=== PATIENT | female | born 1975 | race Caucasian/White ===

== ENCOUNTER 2018-02-10 21:02 | Emergency (ER) | payer MEDICAID ==
[~2018-02-10] VITALS: Ht 160 cm; Wt 60.4 kg
[2018-02-10] MEDS ORDERED: PLEASE ENTER ALLERGIES MC SCH (21:30)
[2018-02-10] MEDS ORDERED: ONDANSETRON ODT 4 MG PO ONE (21:30)
[2018-02-10 21:41] LABS: BASOPHILS # (AUTO) 0.04 x10^3/uL (0-0.1); BASOPHILS % (AUTO) 1 % (0-1); EOSINOPHILS # (AUTO) 0.03 x10^3/uL (0-0.4); EOSINOPHILS % (AUTO) 0 % (1-7); LYMPHOCYTES # (AUTO) 2.95 x10^3/uL (1-3.4); LYMPHOCYTES % (AUTO) 41 % (22-44); MD NO; MEAN CORPUSCULAR HEMOGLOBIN 31.1 pg (27.0-34.8); MEAN CORPUSCULAR HGB CONC 34.6 g/dL (32.4-35.8); MEAN CORPUSCULAR VOLUME 89.9 fL (80-100); MONOCYTES # (AUTO) 0.64 x10^3/uL (0.2-0.8); MONOCYTES % (AUTO) 9 % (2-9); NEUTROPHILS # (AUTO) 3.48 x10^3/uL (1.8-6.8); NEUTROPHILS % (AUTO) 49 % (42-75); PLATELET COUNT 373 x10^3/uL (130-400); RED BLOOD COUNT 4.49 x10^6/uL (3.82-5.3); RED CELL DISTRIBUTION WIDTH 12.8 % (9.6-15.2)
[2018-02-10] MEDS ORDERED: ONDANSETRON ODT 4 MG ONE (21:41)
[2018-02-10 21:47] LABS: CULTURE INDICATED? YES; MICROSCOPIC INDICATED
[2018-02-10 21:51] LABS: ALANINE AMINOTRANSFERASE 28 U/L (12-78); ANION GAP 12 mmol/L (5-15); CALCIUM 8.7 mg/dL (8.5-10.1); CHLORIDE 110 mmol/L (98-107); CREATININE 1.01 mg/dL (0.55-1.02)
[2018-02-10 21:54] LABS: ALKALINE PHOSPHATASE 68 U/L (45-117); BILIRUBIN,TOTAL 0.6 mg/dL (0.2-1.0); TOTAL PROTEIN 7.4 g/dL (6.4-8.2)
[2018-02-10 21:55] LABS: AMPHETAMINE SCREEN, URINE Positive (Negative); BARBITURATE SCREEN, URINE Negative (Negative); BENZODIAZEPINE SCREEN, URINE Negative (Negative); CANNABINOID SCREEN, URINE Negative (Negative); COCAINE SCREEN, URINE Negative (Negative); METHADONE SCREEN, URINE Negative (Negative); OPIATE SCREEN, URINE Negative (Negative)
[2018-02-10] MEDS ORDERED: POTASSIUM CHLORIDE 20 MEQ TAB.ER.PRT ONE (22:00)
[2018-02-10] MEDS ORDERED: POTASSIUM CHLORIDE 20 MEQ TAB.ER.PRT PO ONE (22:00)
[2018-02-10 22:14] VITALS: BP 102/70
== END 2018-02-10 22:39 | disposition home or self-care (01) ==
LOC: ED 22:30
DX: K29.00 Acute gastritis without bleeding (principal); L20.84 Intrinsic (allergic) eczema; E87.6 Hypokalemia; F15.10 Other stimulant abuse, uncomplicated; L30.9 Dermatitis, unspecified; F17.200 Nicotine dependence, unspecified, uncomplicated; F41.9 Anxiety disorder, unspecified; F32.9 Major depressive disorder, single episode, unspecified; Z72.9 Problem related to lifestyle, unspecified; Z79.899 Other long term (current) drug therapy
CPT/HCPCS: 36415; 80053; 80307; 81001; 85025; 87086; 99284; Q0162

== ENCOUNTER 2019-02-08 22:48 | Emergency (ER) | payer MEDICAID ==
[~2019-02-08] VITALS: Ht 160 cm; Wt 55.2 kg
[2019-02-08 22:53] VITALS: BP 110/71
[2019-02-08] MEDS ORDERED: CEPHALEXIN 500 MG CAPSULE PO ONE (23:00)
[2019-02-08] MEDS ORDERED: SULFAMETH./TRIMETHOPRIM DS 800MG/160MG TABLET PO ONE (23:00)
[2019-02-08] MEDS ORDERED: SULFAMETH./TRIMETHOPRIM DS 800MG/160MG TABLET ONE (23:10)
[2019-02-08] MEDS ORDERED: CEPHALEXIN 500 MG CAPSULE ONE (23:10)
[2019-02-08] MEDS ORDERED: ONDANSETRON ODT 4 MG ONE (23:13)
--- NOTE | 2019-02-08 23:15 | NUR ---
PT MEDICATED PER MAR FROM TRIAGE. PT D/C HOME FROM LOBBY. TRIAGE VSS. NO S/S OF ACUTE DISTRESS.
[2019-02-08] MEDS ORDERED: ONDANSETRON ODT 4 MG PO ONE (23:30)
== END 2019-02-08 23:18 | disposition home or self-care (01) ==
LOC: ED 23:02
DX: L03.221 Cellulitis of neck (principal); F32.9 Major depressive disorder, single episode, unspecified; F41.1 Generalized anxiety disorder; F17.210 Nicotine dependence, cigarettes, uncomplicated; Z86.19 Personal history of other infectious and parasitic diseases
CPT/HCPCS: 99284; Q0162

== ENCOUNTER 2019-02-12 17:20 | Emergency (ER) | payer MEDICAID ==
[~2019-02-12] VITALS: Ht 160 cm; Wt 55.1 kg
[2019-02-12 17:23] VITALS: BP 110/73
--- NOTE | 2019-02-12 17:57 | NUR ---
Patient given discharge instructions and Rx, they have confirmed that they understand the instructions. Patient ambulatory with steady gait.
== END 2019-02-12 17:58 | disposition home or self-care (01) ==
LOC: ED 17:30
DX: S09.90XA Unspecified injury of head, initial encounter (principal); F32.9 Major depressive disorder, single episode, unspecified; F17.200 Nicotine dependence, unspecified, uncomplicated; W22.8XXA Striking against or struck by other objects, initial encounter; Y93.89 Activity, other specified; Y92.69 Other specified industrial and construction area as the place of occurrence of the external cause; Y99.0 Civilian activity done for income or pay
CPT/HCPCS: 99283

== ENCOUNTER 2019-08-24 16:02 | Emergency (ER) | payer MEDICAID ==
[~2019-08-24] VITALS: Ht 160 cm; Wt 56.0 kg
[2019-08-24 16:25] VITALS: BP 100/61
[2019-08-24] MEDS ORDERED: FLUCONAZOLE 50 MG TABLET PO ONE (17:30)
[2019-08-24] MEDS ORDERED: NYSTATIN CRM 15GM TP PRN (17:30)
[2019-08-24] MEDS ORDERED: HYDROcodone/APAP 5/325 TABLET ONE (17:37)
--- NOTE | 2019-08-24 17:39 | NUR ---
PT MED NOTED FOR VAGINAL PAIN 05/18. OTHER MEDS ORDERED FROM PHARMACY. PT AWARE. CALL LIGHT W/I REACH
[2019-08-24 17:53] LABS: CLUE CELLS NONE SEEN (NONE SEEN); WET PREP WBCS MODERATE (FEW)
[2019-08-24] MEDS ORDERED: HYDROcodone/APAP 5/325 TABLET PO ONE (18:00)
--- NOTE | 2019-08-24 18:51 | NUR ---
Patient/Caregiver given discharge instructions and they have confirmed that they understand the instructions. Patient ambulatory with steady gait.
== END 2019-08-24 18:55 | disposition home or self-care (01) ==
LOC: ED 18:45
DX: R10.2 Pelvic and perineal pain (principal); B37.3 Candidiasis of vulva and vagina; N89.8 Other specified noninflammatory disorders of vagina; F17.210 Nicotine dependence, cigarettes, uncomplicated
CPT/HCPCS: 87210; 87491; 87591; 87808; 99284

== ENCOUNTER 2019-09-15 16:53 | Emergency (ER) | payer MEDICAID ==
[~2019-09-15] VITALS: Ht 160 cm; Wt 56.7 kg
--- NOTE | 2019-09-15 17:00 | NUR ---
URINE SAMPLE SENT TO LAB. 'WD POC WITH PT, WATER AND BLANKET PROVIDED.
[2019-09-15] MEDS ORDERED: PHENAZOPYRIDINE 200 MG TABLET PO ONE (17:30)
[2019-09-15] MEDS ORDERED: PHENAZOPYRIDINE 200 MG TABLET ONE (17:35)
[2019-09-15 17:40] LABS: CULTURE INDICATED? YES; MICROSCOPIC INDICATED
[2019-09-15] MEDS ORDERED: CEFTRIAXONE 1,000 MG ONE (18:31)
[2019-09-15] MEDS ORDERED: LIDOCAINE-MPF 1%, 5ML ONE (18:33)
[2019-09-15] MEDS ORDERED: MICONAZOLE 7 VAG. CRM 2%, 45GM VG ONE (18:41)
[2019-09-15] MEDS ORDERED: FLUCONAZOLE 100 MG TABLET ONE (18:49)
[2019-09-15] MEDS ORDERED: CEFTRIAXONE 1,000 MG IM ONE (19:00)
[2019-09-15] MEDS ORDERED: FLUCONAZOLE 100 MG TABLET PO ONE (19:00)
[2019-09-15 19:14] VITALS: BP 95/58
--- NOTE | 2019-09-15 19:15 | NUR ---
CRACKERS & WATER PROVIDED TO PT. D/C INSTRUCTIONS, MEDS & F/U APPT RV'WD WITH PT, SHE VERBALIZES UNDERSTANDING. RX GIVEN X2. MONISTAT CREAM PROVIDED TO PT. PT AMBULATED OUT OF ED WITHOUT DIFFICULTY, STATES HER DAUGHTER WILL PICK HER UP.
== END 2019-09-15 19:16 | disposition home or self-care (01) ==
LOC: ED 17:09
DX: N30.00 Acute cystitis without hematuria (principal); B37.3 Candidiasis of vulva and vagina
CPT/HCPCS: 81001; 87077; 87086; 87186; 99283

== ENCOUNTER 2019-10-10 20:44 | Emergency (ER) | payer MEDICAID, BC ==
[~2019-10-10] VITALS: Ht 160 cm; Wt 54.7 kg
[2019-10-10] MEDS ORDERED: FLUCONAZOLE 50 MG TABLET PO ONE (21:30)
[2019-10-10 21:34] VITALS: BP 102/67
--- NOTE | 2019-10-10 21:35 | NUR ---
PT C/O PAINFUL URINATION X2 DAYS, WELL YEAST INFECTION. UTI 1MONTH AGO AND COMPLETED ABX. CONNECTED TO MONITORING. CALL LIGHT IN REACH. UA COLLECTED AND TAKEN TO LAB.
[2019-10-10] MEDS ORDERED: PHENAZOPYRIDINE 200 MG TABLET ONE (21:38)
[2019-10-10] MEDS ORDERED: FLUCONAZOLE 100 MG TABLET ONE (21:39)
[2019-10-10 21:42] LABS: HCG UR SG 1.024 (1.003-1.030)
--- NOTE | 2019-10-10 21:42 | NUR ---
MEDS ADMIN PER DEC. PT RESTING COMFORTABLY ON GURNEY WATCHING TV. BETTY.
[2019-10-10 21:48] LABS: MICROSCOPIC INDICATED
[2019-10-10 21:49] LABS: CULTURE INDICATED? YES
--- NOTE | 2019-10-10 21:53 | NUR ---
ALL RESULTS ARE BACK AT THIS TIME. CHART UP FOR RECHECK.
[2019-10-10] MEDS ORDERED: PHENAZOPYRIDINE 200 MG TABLET PO ONE (22:00)
== END 2019-10-10 22:23 | disposition home or self-care (01) ==
LOC: ED 21:36
DX: B37.3 Candidiasis of vulva and vagina (principal); N30.01 Acute cystitis with hematuria; F17.200 Nicotine dependence, unspecified, uncomplicated; Z86.19 Personal history of other infectious and parasitic diseases
CPT/HCPCS: 81001; 81025; 87077; 87086; 87147; 87186; 99283

== ENCOUNTER 2020-06-20 17:37 | Emergency (ER) | payer BC, MEDICAID ==
[~2020-06-20] VITALS: Ht 160 cm; Wt 64.9 kg
[~2020-06-20 17:37] MED LIST: KETOROLAC 60 MG/2 ML IM ONE
[2020-06-20] MEDS ORDERED: KETOROLAC 60 MG/2 ML ONE (18:05)
--- NOTE | 2020-06-20 18:30 | NUR ---
THIS IS A 44 YO FEMALE COMING IN WITH C/O LEFT SIDED CHEST PAIN RADIATING DOWN LEFT ARM X3 DAYS, TENDER TO PALPATION, REPRODUCIBLE PAIN. PAIN IS CONSTANT ANDC DESCRIBED ACHING AND PRESSURE. DENIES ANY MEDICAL HX. ALL MONITORING IN PLACE, NSR ON ADMINISTRATIVE SUPPORT ASSISTANT. PATIENT RECENTLY STARTED NEW JOB COUPLE WEEKS AGO INVOLVING HEAVY LIFTING MOVING ITEMS INTO AND OUT OF TRUCKS. DENIES ANY SPECIFIC EVENT CAUSING PAIN. A&OX4, RESPIRATIONS EVEN AND UNLABORED, LUNG SOUNDS CLEAR IN ALL LOBES. CALL LIGHT IN REACH
[2020-06-20 18:35] LABS: BASOPHILS # (AUTO) 0.02 x10^3/uL (0-0.1); BASOPHILS % (AUTO) 1 % (0-1); EOSINOPHILS # (AUTO) 0.09 x10^3/uL (0-0.4); EOSINOPHILS % (AUTO) 2 % (1-7); LYMPHOCYTES # (AUTO) 1.97 x10^3/uL (1-3.4); LYMPHOCYTES % (AUTO) 42 % (22-44); MD NO; MEAN CORPUSCULAR HEMOGLOBIN 30.8 pg (27.0-34.8); MEAN CORPUSCULAR HGB CONC 32.8 g/dL (32.4-35.8); MEAN CORPUSCULAR VOLUME 93.8 fL (80-100); MEAN PLATELET VOLUME 6.8 fL (7.4-10.4); MONOCYTES # (AUTO) 0.37 x10^3/uL (0.2-0.8); MONOCYTES % (AUTO) 8 % (2-9); NEUTROPHILS # (AUTO) 2.24 x10^3/uL (1.8-6.8); NEUTROPHILS % (AUTO) 48 % (42-75); PLATELET COUNT 303 x10^3/uL (130-400); RED BLOOD COUNT 3.98 x10^6/uL (3.82-5.3); RED CELL DISTRIBUTION WIDTH 14.2 % (9.6-15.2)
[2020-06-20 18:44] LABS: ALBUMIN 3.2 g/dL (3.4-5.0); ANION GAP 8 mmol/L (5-15); CALCIUM 8.6 mg/dL (8.5-10.1); CHLORIDE 112 mmol/L (98-107); CREATININE 0.74 mg/dL (0.55-1.02)
[2020-06-20 18:48] LABS: TROPONIN I < 0.015 ng/mL (0.000-0.045)
[2020-06-20 18:51] VITALS: BP 92/53
--- NOTE | 2020-06-20 19:04 | NUR ---
ALL RESULTS BACK, PATIENT UP FOR RECHECK
--- NOTE | 2020-06-20 19:54 | NUR ---
Patient given discharge instructions and they have confirmed that they understand the instructions. Patient ambulatory with steady gait.
== END 2020-06-20 19:55 | disposition home or self-care (01) ==
LOC: ED 18:54
DX: R07.89 Other chest pain (principal); F17.210 Nicotine dependence, cigarettes, uncomplicated
CPT/HCPCS: 36415; 71045; 73030; 80048; 82040; 84484; 85025; 93005; 96372; 99285; 99406; J1885

== ENCOUNTER 2021-01-24 19:44 | Emergency (ER) | payer MEDICAID ==
[~2021-01-24] VITALS: Ht 160 cm; Wt 66.5 kg
[2021-01-24] MEDS ORDERED: LORazepam 1MG TABLET PO ONE ×2 (20:00→21:00)
[2021-01-24] MEDS ORDERED: LORazepam 1MG TABLET ONE ×2 (20:05→21:05)
--- NOTE | 2021-01-24 20:10 | NUR ---
SOB/PANICKED/MIDSTERANAL CHEST PAIN X 24 HOURS LAST METH USE 4 DAYS AGO SIGNIFICANT SOCIAL STESSORS LATELY NO CARDIAC HX/NO HX OF BLOOD CLOTS HOWEVER ON CONTROL FOR UNCONTROLLED VAGINAL BLEEDING X 2 WEEKS (ROUGHLY 5 PADS/DAY) VSS ON BOOK STORE ASSOCIATE MEDICATED PER EMAR FOR ANXIETY LAB AND RADIOLOGY AT BEDSIDE
[2021-01-24] MEDS ORDERED: BUPR150T13 PO (20:14)
[2021-01-24] MEDS ORDERED: NORE1PAT7 TP (20:14)
--- NOTE | 2021-01-24 20:14 | NUR ---
REPORT TO JIMMIE JENKINS
[2021-01-24 20:17] LABS: BASOPHILS % (AUTO) 1 % (0-1); EOSINOPHILS % (AUTO) 1 % (1-7); LYMPHOCYTES % (AUTO) 32 % (22-44); MD NO; MEAN CORPUSCULAR HEMOGLOBIN 28.7 pg (27.0-34.8); MEAN CORPUSCULAR HGB CONC 33.3 g/dL (32.4-35.8); MEAN PLATELET VOLUME 6.3 fL (7.4-10.4); MONOCYTES % (AUTO) 7 % (2-9); NEUTROPHILS % (AUTO) 59 % (42-75); PLATELET COUNT 499 x10^3/uL (130-400); RED BLOOD COUNT 3.01 x10^6/uL (3.82-5.3); RED CELL DISTRIBUTION WIDTH 14.1 % (9.6-15.2)
[2021-01-24 20:29] LABS: ALBUMIN 3.7 g/dL (3.4-5.0); ANION GAP 12 mmol/L (5-15); CALCIUM 9.2 mg/dL (8.5-10.1); CHLORIDE 112 mmol/L (98-107); CREATININE 1.25 mg/dL (0.55-1.02)
[2021-01-24 20:33] LABS: TROPONIN I < 0.015 ng/mL (0.000-0.045)
[2021-01-24] MEDS ORDERED: MAALOX/HYOSCYAMINE/LIDOCAINE 45 ML BTL PO ONE (21:00)
[2021-01-24] MEDS ORDERED: MAALOX/HYOSCYAMINE/LIDOCAINE 45 ML BTL ONE (21:05)
[2021-01-24 21:14] VITALS: BP 120/65
== END 2021-01-24 21:37 | disposition home or self-care (01) ==
LOC: ED 20:57
DX: R06.00 Dyspnea, unspecified (principal); D53.9 Nutritional anemia, unspecified; F41.1 Generalized anxiety disorder; R00.0 Tachycardia, unspecified; R07.89 Other chest pain
CPT/HCPCS: 36415; 71045; 80048; 82040; 83880; 84484; 84703; 85025; 85379; 93005; 99285